=== PATIENT | male | born 1975 | race Caucasian/White ===

== ENCOUNTER 2018-08-04 12:06 | Observation (INO) | payer OTHER ==
[2018-08-04] MEDS ORDERED: SODIUM CHLORIDE 0.9% 500 ML 500 ML IV STA (12:30)
--- NOTE | 2018-08-04 12:40 | ED ---
General Adult HPI - General Chief complaint: Abdominal Pain Stated complaint: Abd pain, blood in stool Time Seen by Provider: 08/04/18 12:15 Source: patient, RN notes reviewed Mode of arrival: ambulatory Limitations: no limitations - History of Present Illness Initial comments: This is a 43-year-old male who presents emergency Department complaining bright red blood in his stool. Patient states he has been having some ongoing abdominal cramping sometimes waking up at night with severe abdominal cramps. Patient states she's had quite a bit of intermittent diarrhea which is been ongoing for quite a while. Patient states often he has to push to have a bowel movement but when he does finally have a bowel movement just diarrhea. Patient states more recently has been noticing blood on the toilet paper which has progressed to blood in the toilet and now is progressing actual blood in the actual stool. Patient states he does not have a primary medical care doctor so he decided come in and be evaluated. Patient has had no colonoscopy in the past he denies any abdominal surgeries. Patient denies any nausea vomiting. Patient states she's had no recent fever or chills. Patient does have a past medical history significant for melanoma - Related Data Home Medications Medication Instructions Recorded Confirmed Ibuprofen [Motrin Ib] 400 mg PO Q6H PRN 08/04/18 08/04/18 Loratadine [Claritin] 10 mg PO DAILY PRN 08/04/18 08/04/18 Allergies Allergy/AdvReac Type Severity Reaction Status Date / Time ragweed pollen Allergy Cough Verified 08/04/18 12:53 Review of Systems ROS Statement: Those systems with pertinent positive or pertinent negative responses have been documented in the HPI. ROS Other: All systems not noted in ROS Statement are negative. Past Medical History Additional Past Medical History / Comment(s): gastritis History of Any Multi-Drug Resistant Organisms: None Reported Additional Past Surgical History / Comment(s): bakers cyst melanoma Past Psychological History: Bipolar Smoking Status: Former smoker Past Alcohol Use History: Occasional Past Drug Use History: None Reported General Exam - General Exam Comments Initial Comments: GENERAL: Patient is well-developed and well-nourished. Patient is nontoxic and well- hydrated and is in no acute distress. ENT: Neck is soft and supple. No significant lymphadenopathy is noted. Oropharynx is clear. Moist mucous membranes. Neck has full range of motion without eliciting any pain. EYES: The sclera were anicteric and conjunctiva were pink and moist. Extraocular movements were intact and pupils were equal round and reactive to light. Eyelids were unremarkable. PULMONARY: Unlabored respirations. Good breath sounds bilaterally. No audible rales rhonchi or wheezing was noted. CARDIOVASCULAR: There is a regular rate and rhythm without any murmurs gallops or rubs. ABDOMEN: Soft and nontender with normal bowel sounds. No palpable organomegaly was noted. There is no palpable pulsatile mass. RECTAL: On rectal exam there was no obvious site of bleeding anywhere however there was some bright red blood around the anus SKIN: Skin is clear with no lesions or rashes and otherwise unremarkable. NEUROLOGIC: Patient is alert and oriented x3. Cranial nerves II through XII are grossly intact. Motor and sensory are also intact. Normal speech, volume and content. Symmetrical smile. MUSCULOSKELETAL: Normal extremities with adequate strength and full range of motion. No lower extremity swelling or edema. No calf tenderness. LYMPHATICS: No significant lymphadenopathy is noted PSYCHIATRIC: Normal psychiatric evaluation. N Limitations: no limitations Course Vital Signs 08/04/18 12:14 Temperature 98.0 F Pulse Rate 87 Respiratory 16 Rate Blood Pressure 135/89 O2 Sat by Pulse 97 Oximetry Medical Decision Making - Lab Data Result diagrams: 08/04/18 12:39 08/04/18 12:39 Lab Results 08/04/18 08/04/18 08/04/18 Range/Units 12:39 12:39 12:39 WBC 7.2 (3.8-10.6) k/uL RBC 4.82 (4.30-5.90) m/uL Hgb 14.6 (13.0-17.5) gm/dL Hct 43.4 (39.0-53.0) % MCV 90.2 (80.0-100.0) fL MCH 30.3 (25.0-35.0) pg MCHC 33.6 (31.0-37.0) g/dL RDW 12.3 (11.5-15.5) % Plt Count 335 (150-450) k/uL Neutrophils % 59 % Lymphocytes % 29 % Monocytes % 6 % Eosinophils % 4 % Basophils % 1 % Neutrophils # 4.2 (1.3-7.7) k/uL Lymphocytes # 2.1 (1.0-4.8) k/uL Monocytes # 0.4 (0-1.0) k/uL Eosinophils # 0.3 (0-0.7) k/uL Basophils # 0.0 (0-0.2) k/uL PT 10.4 (9.0-12.0) sec INR 1.1 (<1.2) APTT 21.9 L (22.0-30.0) sec Sodium 142 (137-145) mmol/L Potassium 4.7 (3.5-5.1) mmol/L Chloride 109 H (98-107) mmol/L Carbon Dioxide 25 (22-30) mmol/L Anion Gap 8 mmol/L BUN 11 (9-20) mg/dL Creatinine 0.76 (0.66-1.25) mg/dL Est GFR (CKD-EPI)AfAm >90 (>60 ml/min/1.73 sqM) Est GFR (CKD-EPI)NonAf >90 (>60 ml/min/1.73 sqM) Glucose 91 (74-99) mg/dL Calcium 9.8 (8.4-10.2) mg/dL Total Bilirubin 0.6 (0.2-1.3) mg/dL AST 28 (17-59) U/L ALT 21 (21-72) U/L Alkaline Phosphatase 50 (38-126) U/L Total Protein 7.0 (6.3-8.2) g/dL Albumin 4.1 (3.5-5.0) g/dL Amylase 106 (30-110) U/L Lipase 282 (23-300) U/L Disposition Clinical Impression: GI bleed, Diarrhea Disposition: ADMITTED IP TO THIS [facility] Time of Disposition: 13:54
[2018-08-04 12:52] LABS: Basophils % (A) 1 %; Eosinophils # (A) 0.3 k/uL (0-0.7); Eosinophils % (A) 4 %; HCT 43.4 % (39.0-53.0); HGB 14.6 gm/dL (13.0-17.5); Lymphocytes # (A) 2.1 k/uL (1.0-4.8); Lymphocytes % (A) 29 %; MCH 30.3 pg (25.0-35.0); MCHC 33.6 g/dL (31.0-37.0); MCV 90.2 fL (80.0-100.0); Mean Platelet Volume 6.4; Monocytes # (A) 0.4 k/uL (0-1.0); Monocytes % (A) 6 %; Neutrophils # (A) 4.2 k/uL (1.3-7.7); Neutrophils % (A) 59 %; Platelet Count 335 k/uL (150-450); RBC 4.82 m/uL (4.30-5.90); RDW 12.3 % (11.5-15.5); WBC 7.2 k/uL (3.8-10.6)
[2018-08-04 13:09] LABS: INR 1.1 (<1.2); Partial Thromboplastin Time 21.9 sec (22.0-30.0); Prothrombin Time 10.4 sec (9.0-12.0)
[2018-08-04 13:11] LABS: ALT 21 U/L (21-72); AST 28 U/L (17-59); Albumin 4.1 g/dL (3.5-5.0); Alkaline Phosphatase 50 U/L (38-126); Amylase 106 U/L (30-110); Anion Gap 8 mmol/L; Blood Urea Nitrogen 11 mg/dL (9-20); Calcium 9.8 mg/dL (8.4-10.2); Carbon Dioxide 25 mmol/L (22-30); Chloride 109 mmol/L (98-107); Glucose 91 mg/dL (74-99); Lipase 282 U/L (23-300); Potassium 4.7 mmol/L (3.5-5.1); Sodium 142 mmol/L (137-145); Total Bilirubin 0.6 mg/dL (0.2-1.3)
[2018-08-04] MEDS ORDERED: SODIUM CHLORIDE 0.9% 1,000 ML IV ONE (13:55)
[2018-08-04 15:09] LABS: Appearance,Urine Clear (Clear); Bilirubin,Urine Negative (Negative); Blood,Urine Negative (Negative); Color,Urine Yellow; Glucose,Urine (UA) Negative (Negative); Ketones,Urine Negative (Negative); Leukocyte Esterase,Urine Negative (Negative); Nitrite,Urine Negative (Negative); Protein,Urine Trace (Negative); Specific Gravity,Urine 1.019 (1.001-1.035)
[2018-08-04 15:54] VITALS: BMI 23.5
[2018-08-04 19:13] LABS: Basophils % (A) 1 %; Eosinophils # (A) 0.3 k/uL (0-0.7); Eosinophils % (A) 5 %; HCT 38.9 % (39.0-53.0); HGB 12.9 gm/dL (13.0-17.5); Lymphocytes # (A) 2.6 k/uL (1.0-4.8); Lymphocytes % (A) 37 %; MCH 30.6 pg (25.0-35.0); MCHC 33.2 g/dL (31.0-37.0); MCV 92.1 fL (80.0-100.0); Mean Platelet Volume 6.9; Monocytes # (A) 0.4 k/uL (0-1.0); Monocytes % (A) 5 %; Neutrophils # (A) 3.5 k/uL (1.3-7.7); Neutrophils % (A) 51 %; Platelet Count 258 k/uL (150-450); RBC 4.23 m/uL (4.30-5.90); RDW 12.3 % (11.5-15.5)
[2018-08-04] MEDS: HYDROcodone/APAP 5-325MG 1 EACH TAB PO PRN (21:03)
--- NOTE | 2018-08-04 23:37 | P.HPIM ---
History of Present Illness H&P Date: 08/04/18 Chief Complaint: Blood per Rectum Patient is a 43-year-old male with a known history of gastritis, melanoma and bipolar disorder came to ER with complaints of bright red blood per rectum. Patient has been having chronic ongoing abdominal cramping and diarrhea on and off for the past 1 year. Patient has not followed with a physician.Patient states often he has to push to have a bowel movement but when he does finally have a bowel movement just diarrhea. Patient states more recently has been noticing blood on the toilet paper which has progressed to blood in the toilet and now is progressing actual blood in the actual stool. Patient has had no colonoscopy in the past he denies any abdominal surgeries. Patient denies any nausea vomiting. Patient states she's had no recent fever or chills. No chest pain or shortness of breath. No headache or dizziness or lightheadedness. Patient does take Motrin for headache on and off. Last time he took was 7 days ago. Review of Systems Constitutional: Patient denies any fever or chills . No generalized weakness or weight loss. Abdomen: Patient denied nausea vomiting. Patient does have intermittent diarrhea and cramping abdominal pain. Cardiovascular: Patient denies any chest pain or short of breath no palpitations. Respiratory: patient denied any cough is from production. No shortness of breath Neurologic: Patient denied any numbness or tingling headache. Musculoskeletal: Patient denies any complaints of joint swelling or deformity. Skin: Negative Psychiatric: Negative Endocrine: No heat or cold intolerance. No recent weight gain. Genitourinary: No dysuria or hematuria. All other 14 point ROS negative except the above Past Medical History Additional Past Medical History / Comment(s): gastritis History of Any Multi-Drug Resistant Organisms: None Reported Additional Past Surgical History / Comment(s): bakers cyst melanoma Past Psychological History: Bipolar Smoking Status: Former smoker Past Alcohol Use History: Occasional Past Drug Use History: None Reported Medications and Allergies Home Medications Medication Instructions Recorded Confirmed Type Ibuprofen [Motrin Ib] 400 mg PO Q6H PRN 08/04/18 08/04/18 History Loratadine [Claritin] 10 mg PO DAILY PRN 08/04/18 08/04/18 History Allergies Allergy/AdvReac Type Severity Reaction Status Date / Time ragweed pollen Allergy Cough Verified 08/04/18 12:53 Physical Exam Vitals: Vital Signs Temp Pulse Resp BP Pulse Ox 08/04/18 14:20 74 18 132/82 96 08/04/18 12:14 98.0 F 87 16 135/89 97 Intake and Output 08/03/18 08/04/18 08/04/18 22:59 06:59 14:59 Other: Weight 68.039 kg PHYSICAL EXAMINATION: Patient is lying in the bed comfortably, no acute distress, awake alert and oriented.. HEENT: Normocephalic. Neck is supple. Pupils reactive. Nostrils clear. Oral cavity is moist. Ears reveal no drainage. Neck reveals no JVD, carotid bruits, or thyromegaly. CHEST EXAMINATION: Trachea is central. Symmetrical expansion. Lung gonzalez clear to auscultation and percussion. CARDIAC: Normal S1, S2 with no gallops. No murmurs ABDOMEN: Soft. Bowel sounds normal. No organomegaly. No abdominal bruits. Extremities: reveal no edema. No clubbing or cyanosis Neurologically awake, alert, oriented x3 with well-coordinated movements. No focal deficits noted Skin: No rash or skin lesions. Psychiatric: Coperative. Nonsuicidal Musculoskeletal: No joint swelling or deformity. Normal range of motion. Results CBC & Chem 7: 08/04/18 18:59 08/04/18 12:39 Labs: Abnormal Lab Results - Last 24 Hours (Table) 08/04/18 08/04/18 Range/Units 12:39 12:39 APTT 21.9 L (22.0-30.0) sec Chloride 109 H (98-107) mmol/L Thrombosis Risk Factor Assmnt - DVT/VTE Prophylaxis DVT/VTE Prophylaxis: Mechanical Prophylaxis ordered Assessment and Plan Assessment: Acute lower GI bleed/rectal bleed Mild acute blood loss anemia Chronic diarrhea on and off GERD History of melanoma Bipolar disorder DVT prophylaxis with SCDs Plan: Patient will be continued on IV hydration and monitor H&H. Will start on PPI. GI was consulted. Further recommendations based on the clinical course.
[2018-08-05 07:26] LABS: Basophils % (A) 0 %; Eosinophils # (A) 0.3 k/uL (0-0.7); Eosinophils % (A) 4 %; HCT 40.9 % (39.0-53.0); HGB 13.6 gm/dL (13.0-17.5); Lymphocytes # (A) 2.5 k/uL (1.0-4.8); Lymphocytes % (A) 31 %; MCH 30.4 pg (25.0-35.0); MCHC 33.2 g/dL (31.0-37.0); MCV 91.5 fL (80.0-100.0); Mean Platelet Volume 6.6; Monocytes # (A) 0.5 k/uL (0-1.0); Monocytes % (A) 6 %; Neutrophils # (A) 4.5 k/uL (1.3-7.7); Neutrophils % (A) 56 %; Platelet Count 268 k/uL (150-450); RBC 4.47 m/uL (4.30-5.90); RDW 12.4 % (11.5-15.5)
[2018-08-05] MEDS: PANTOPRAZOLE 40 MG TABLET PO SCH ×2 (09:20→12:40)
[2018-08-05 11:44] LABS: Erythrocyte Sedimentation Rate 5 mm/hr (0-15)
[2018-08-05] MEDS: HYDROcodone/APAP 5-325MG 1 EACH TAB PO PRN (12:40)
[2018-08-05] MEDS ORDERED: DICYCLOMINE 20 MG TAB PO PRN (13:55)
[2018-08-05] MEDS: HYDROCORTISONE SUPPOSITORY 25 MG SUPP RECTAL SCH ×2 (14:51→16:13)
--- NOTE | 2018-08-05 16:17 | P.PN ---
Subjective Progress Note Date: 08/05/18 Principal diagnosis: Acute lower GI bleed/rectal bleed Patient is a 43-year-old male with a known history of gastritis, melanoma and bipolar disorder came to ER with complaints of bright red blood per rectum. Patient has been having chronic ongoing abdominal cramping and diarrhea on and off for the past 1 year. Patient has not followed with a physician.Patient states often he has to push to have a bowel movement but when he does finally have a bowel movement just diarrhea. Patient states more recently has been noticing blood on the toilet paper which has progressed to blood in the toilet and now is progressing actual blood in the stool. Patient has had no colonoscopy in the past he denies any abdominal surgeries. Patient denies any nausea vomiting. Patient states she's had no recent fever or chills. No chest pain or shortness of breath. No headache or dizziness or lightheadedness. Patient does take Motrin for headache on and off. Last time he took was 7 days ago. Today the patient is lying in bed appears to be in acute distress. Over 10 no active issues reported by the nursing staff. This morning patient was evaluated by GI and started on clear liquids for the patient is taking now. Patient reports that this morning he had a bowel movement and noticed some specks of blood. But no bright red in the stool. On review of systems - Constitutional denies having any fevers chills or rigors Cardiovascular no chest pain no palpitations Respiratory no cough or difficulty in breathing GI no abdominal pain nausea or vomiting. Still some blood in the stool. no dysuria or hematuria Objective - Vital Signs Vital signs: Vital Signs Temp 98.8 F 08/05/18 15:19 Pulse 54 L 08/05/18 15:19 Resp 16 08/05/18 15:19 BP 131/70 08/05/18 15:19 Pulse Ox 97 08/05/18 15:19 Intake & Output 08/04/18 08/05/18 08/05/18 18:59 06:59 18:59 Intake Total 1949 1959 Balance 1949 1959 Weight 68.039 kg Intake: IV 800 Sodium Chloride 0.9% 1, 800 000 ml @ 100 mls/hr IV . Q10H ONE Rx#:[id number] Intake, IV Titration 1350 Amount Sodium Chloride 0.9% 1, 1350 000 ml @ 100 mls/hr IV . Q10H ONE Rx#:[id number] Oral 600 1160 Other: Voiding Method Toilet # Voids 3 - Exam Patient is lying in the bed comfortably, no acute distress, awake alert and oriented.. HEENT: Normocephalic. Neck is supple. Pupils reactive. Nostrils clear. Oral cavity is moist. Ears reveal no drainage. CHEST EXAMINATION: Trachea is central. Symmetrical expansion. Lung gonzalez clear to auscultation and percussion. CARDIAC: Normal S1, S2 with no gallops. No murmurs ABDOMEN: Soft. Bowel sounds normal. No organomegaly. No abdominal bruits. Extremities: reveal no edema. No clubbing or cyanosis Neurologically awake, alert, oriented x3 with well-coordinated movements. No focal deficits noted Skin: No rash or skin lesions. Psychiatric: Coperative. Nonsuicidal Musculoskeletal: No joint swelling or deformity. Normal range of motion. - Labs CBC & Chem 7: 08/05/18 07:04 08/04/18 12:39 Labs: Abnormal Lab Results - Last 24 Hours (Table) 08/04/18 Range/Units 18:59 RBC 4.23 L (4.30-5.90) m/uL Hgb 12.9 L (13.0-17.5) gm/dL Hct 38.9 L (39.0-53.0) % Assessment and Plan Assessment: Acute lower GI bleed/rectal bleed Mild acute blood loss anemia Chronic diarrhea on and off GERD History of melanoma Bipolar disorder DVT prophylaxis with SCDs Plan: Patient's hemoglobin has been stable so far did not require any blood transfusion. Continue with IV hydration. Continue with PPI. SCDs for DVT prophylaxis. GI on board and saw the patient and has been started on Bentyl today. Further recommendations depending on the progress of the patient.
[2018-08-06] MEDS: PANTOPRAZOLE 40 MG TABLET PO SCH (07:06)
[2018-08-06 08:05] LABS: Basophils % (A) 1 %; Eosinophils # (A) 0.2 k/uL (0-0.7); Eosinophils % (A) 3 %; HCT 41.8 % (39.0-53.0); HGB 13.8 gm/dL (13.0-17.5); Lymphocytes # (A) 1.7 k/uL (1.0-4.8); Lymphocytes % (A) 23 %; MCH 30.2 pg (25.0-35.0); MCHC 32.9 g/dL (31.0-37.0); Mean Platelet Volume 6.4; Monocytes # (A) 0.5 k/uL (0-1.0); Monocytes % (A) 7 %; Neutrophils # (A) 4.9 k/uL (1.3-7.7); Neutrophils % (A) 66 %; Platelet Count 284 k/uL (150-450); RBC 4.55 m/uL (4.30-5.90); RDW 12.4 % (11.5-15.5); WBC 7.5 k/uL (3.8-10.6)
[2018-08-06 09:06] VITALS: BP 129/87; PULSE 68; RESP 12; TEMP 98
[2018-08-06] MEDS: HYDROCORTISONE SUPPOSITORY 25 MG SUPP RECTAL SCH (09:28)
--- NOTE | 2018-08-06 10:57 | P.DS ---
Providers Date of admission: 08/04/18 13:55 Expected date of discharge: 08/06/18 Attending physician: Ankit Almanza MD Consults: 08/04/18 13:55 Consult Physician Urgent Consulting Provider: Mana Ledezma Consult Reason/Comments: GI bleed Do you want consulting provider notified?: Yes Primary care physician: Stated None Hospital Course: Mr. Loyd is a 43-year-old male with a known history of gastritis, melanoma and bipolar disorder came to ER with complaints of bright red blood per rectum. Patient has been having chronic ongoing abdominal cramping and diarrhea on and off for the past 1 year. Patient has not followed with a physician.Patient states often he has to push to have a bowel movement but when he does finally have a bowel movement just diarrhea. Patient states more recently has been noticing blood on the toilet paper which has progressed to blood in the toilet and now is progressing actual blood in the stool. Patient has had no colonoscopy in the past he denies any abdominal surgeries. Patient denies any nausea vomiting. Patient states she's had no recent fever or chills. No chest pain or shortness of breath. No headache or dizziness or lightheadedness. Patient does take Motrin for headache on and off. Last time he took was 7 days ago. Patient was seen by GI yesterday started on clear liquids which the patient tolerated. Patient's hemoglobin has been stable. Patient does not report any active bleeding. He had a bowel movement this morning with no blood in it. Patient had a full breakfast this morning and tolerated it well. He requests that he be discharged home. Patient's vitals at the time of discharge temperature 90.8 heart rate 68 respiration rate 12 blood pressure 1 10 x 87 secondary to negative and 99% on room air Physical examination HEENT: Normocephalic. Neck is supple. Pupils reactive. Nostrils clear. Oral cavity is moist. Ears reveal no drainage. CHEST EXAMINATION: Trachea is central. Symmetrical expansion. Lung gonzalez clear to auscultation and percussion. CARDIAC: Normal S1, S2 with no gallops. No murmurs ABDOMEN: Soft. Bowel sounds normal. No organomegaly. No abdominal bruits. Extremities: reveal no edema. No clubbing or cyanosis DISCHARGE DIAGNOSIS Acute lower GI bleed Mild acute blood loss anemia Chronic diarrhea on and off GERD History of melanoma Bipolar disorder Plan: Patient's hemoglobin has been stable since admission. Patient does not have any bleeding per rectum. Patient tolerated for breakfast this morning and is completely asymptomatic and wants to go home. Patient is being discharged in a stable condition and advised to follow-up with GI and his primary care doctor. Patient Condition at Discharge: Stable Plan - Discharge Summary New Discharge Prescriptions: New Dicyclomine [Bentyl] 20 mg PO TID PRN #30 tab PRN Reason: abdominal pain Hydrocortisone Suppository [Anusol-Hc] 25 mg RECTAL DAILY #10 supp Pantoprazole [Protonix] 40 mg PO AC-BRKFST #30 tablet. Continue Loratadine [Claritin] 10 mg PO DAILY PRN PRN Reason: Allergy Symptoms Discontinued Ibuprofen [Motrin Ib] 400 mg PO Q6H PRN PRN Reason: Pain Discharge Medication List Loratadine [Claritin] 10 mg PO DAILY PRN 08/04/18 [History] Dicyclomine [Bentyl] 20 mg PO TID PRN #30 tab 08/06/18 [Rx] Hydrocortisone Suppository [Anusol-Hc] 25 mg RECTAL DAILY #10 supp 08/06/18 [Rx] Pantoprazole [Protonix] 40 mg PO AC-BRKFST #30 tablet. 08/06/18 [Rx] Discharge Disposition: HOME SELF-CARE
--- NOTE | 2018-08-06 16:51 | P.CONS ---
History of Present Illness - Reason for Consult Consult date: 08/05/18 Abdominal pain, blood per rectum Requesting physician: Josiane Hines - Chief Complaint Abdominal pain, blood per rectum - History of Present Illness The patient is a pleasant 43-year-old male with a long-standing history of abdominal pain, and prior melanoma which was resected presents to the hospital with complaints of bright red blood per rectum and abdominal pain. The patient reports a long history of noticing blood with bowel movements. Usually the blood would be on the toilet paper but he has noticed more blood recently with some on the stool and mixed in the water of the toilet. He reports at baseline he has loose bowel movements typically 3-4 times in the morning per day. He reports that this is not uncommon for him and has been occurring for a long time. He also has a long-standing history of crampy abdominal pain in association with his bowel movements. He reports that the pain is improved after he has his bowel movements. He does feel there is an association with stress and his symptoms, noting that he has a very stressful work environment. He denies any recent sick contacts, travel or antibiotic use. He denies any frequent heartburn, reporting that it occurs once in a great while. On presentation he had normal hemoglobin of 14.6 which has remained stable at 3.6. LFTs were normal and lipase was not elevated. He does report occasionally waking up to have a bowel movement, but denies any soaking night sweats or unintentional weight loss. Review of Systems REVIEW OF SYSTEMS: CONSTITUTIONAL: Denies any fevers, chills, weight change or fatigue. CARDIOVASCULAR: Denies any chest pain, palpitations high or low blood pressures RESPIRATORY: Denies any shortness of breath, hemoptysis or cough. GENITOURINARY: No dysuria or hematuria. MUSCULOSKELETAL: No weakness reported. SKIN: Denies any new rashes or lesions, jaundice or pallor. PSYCHIATRIC: Denies any depression or anxiety does report increased stress at work. NEUROLOGY: Denies headache, denies any new focal deficits. EARS/NOSE/THROAT: No recent hearing change, congestion, nasal discharge or sore throat. EYES: No pain in eyes, discharge or change in vision. GASTROINTESTINAL: As per HPI. Past Medical History Additional Past Medical History / Comment(s): gastritis History of Any Multi-Drug Resistant Organisms: None Reported Additional Past Surgical History / Comment(s): bakers cyst melanoma Past Psychological History: Bipolar Smoking Status: Former smoker Past Alcohol Use History: Occasional Past Drug Use History: None Reported Medications and Allergies Home Medications Medication Instructions Recorded Confirmed Type Loratadine [Claritin] 10 mg PO DAILY PRN 08/04/18 08/04/18 History Dicyclomine [Bentyl] 20 mg PO TID PRN #30 tab 08/06/18 Rx Hydrocortisone Suppository 25 mg RECTAL DAILY #10 supp 08/06/18 Rx [Anusol-Hc] Pantoprazole [Protonix] 40 mg PO AC-BRKFST #30 tablet. 08/06/18 Rx Allergies Allergy/AdvReac Type Severity Reaction Status Date / Time ragweed pollen Allergy Cough Verified 08/04/18 12:53 Physical Exam Vitals: Vital Signs Temp Pulse Resp BP Pulse Ox 08/05/18 20:18 97.4 F L 79 14 124/73 98 08/05/18 15:00 97.5 F L 69 138/80 98 08/05/18 07:20 98.5 F 66 16 133/85 100 08/05/18 00:02 97.7 F 97 16 111/70 97 Intake and Output 08/05/18 08/05/18 08/06/18 14:59 22:59 06:59 Intake Total 1960 1280 Balance 1960 1280 Intake: IV 800 800 Sodium Chloride 0.9% 1, 800 800 000 ml @ 100 mls/hr IV . Q10H ONE Rx#:[id number] Oral 1160 480 Other: Voiding Method Toilet On physical examination, patient appears comfortable in no apparent distress. HEAD: Normocephalic, atraumatic. EYES: No scleral icterus. No conjunctival injection. MOUTH: No lesions, tongue midline. NECK: Trachea midline, no gross abnormalities. CHEST: Clear to auscultation with no wheezing or rhonchi appreciated. HEART: Regular rate and rhythm. ABDOMEN: Soft, obese. Bowel sounds are positive. No organomegaly. No guarding or rigidity. Mild tenderness to palpation of the abdomen diffusely. EXTREMITIES: No pedal edema. SKIN: No rashes, no jaundice. NEUROLOGIC: Alert and oriented x3. No focal deficits. Results CBC & Chem 7: 08/06/18 07:22 08/04/18 12:39 Assessment and Plan (1) Diarrhea Narrative/Plan: Long-standing history of loose bowel movements, predominantly in the morning and worse with stress with associated abdominal pain. Was prescribed. For likely irritable bowel syndrome-diarrhea predominant, other etiologies on differential include infection which is less likely given the duration of his symptoms, malignancy, inflammatory bowel disease or other pathology. Status: Acute Code(s): R19.7 - DIARRHEA, UNSPECIFIED SNOMED Code(s): 82313035 (2) GI bleed Narrative/Plan: Patient noting blood on toilet paper with wiping after bowel movements, as well as mixed with the stool and in the toilet. Likely represents a hemorrhoidal bleed, also on the differential diverticular bleed, AVM, or less likely malignancy. Status: Acute Code(s): K92.2 - GASTROINTESTINAL HEMORRHAGE, UNSPECIFIED SNOMED Code(s): 70731358 Plan: Supportive care We'll start Bentyl 20 mg as needed for pain Okay for diet We'll start Anusol No plans for endoscopy at this time Patient will need to follow-up in the gastroenterology clinic in 2 weeks at which time we will schedule an outpatient colonoscopy for evaluation of rectal bleeding, however as mentioned in assessment at this time suspicion is for underlying functional bowel disease given the duration of the patient's symptoms and disease course This plan has been communicated with the patient who agrees and promises to follow-up for scheduling Thank you for allowing us to participate in the care of the patient, we will follow
== END 2018-08-06 11:45 | disposition home or self-care (01) ==
LOC: EC 12:06 → 4SSUR 13:55
PROVIDERS: ADMIT Internal Medicine; ATTEND Internal Medicine
DX: K62.5 Hemorrhage of anus and rectum (principal); D62 Acute posthemorrhagic anemia; R19.7 Diarrhea, unspecified; R10.9 Unspecified abdominal pain; K21.9 Gastro-esophageal reflux disease without esophagitis; F31.9 Bipolar disorder, unspecified; Z91.048 Other nonmedicinal substance allergy status; Z85.820 Personal history of malignant melanoma of skin; Z87.19 Personal history of other diseases of the digestive system; Z87.891 Personal history of nicotine dependence
CPT/HCPCS: 96360; 96361; 99284; 36415; 86900; 86901; 80053; 85652; 82150; 83690; 85025 ×3; 85610; 85730; 86850; 86140; 81003; G0378 ×3